=== PATIENT | male | born 2000 | race Caucasian/White ===

== ENCOUNTER 2022-04-16 10:03 | Emergency (ER) | payer OTHER, BC ==
[2022-04-16] MEDS ORDERED: Boostrix 0.5 ML (Tdap) VIAL (>/=7 yrs of age) ONE (10:11)
[2022-04-16] MEDS ORDERED: Bacitracin 1 PK ONE (11:20)
[2022-04-16] MEDS ORDERED: Lidocaine 1% PF 5 ML VIAL ONE (11:38)
[2022-04-16] MEDS ORDERED: Lidocaine 1% w/Epinephrine 1:100K 20 ML VIAL ONE (11:39)
== END 2022-04-16 12:30 | disposition home or self-care (01) ==
LOC: ERS 10:03
DX: S01.81XA Laceration without foreign body of other part of head, initial encounter (principal); Z23 Encounter for immunization; V19.9XXA Pedal cyclist (driver) (passenger) injured in unspecified traffic accident, initial encounter
CPT/HCPCS: 12013; 70450; 70486; 71045; 72125; 90471; 90715